=== PATIENT | male | born 1950 | race Caucasian/White ===

== ENCOUNTER 2019-07-21 09:50 | Inpatient (IN) | payer MEDICARE ==
[~2019-07-21] VITALS: Ht 177.8 cm; Wt 122.7 kg
[~2019-07-21 09:50] MED LIST: APIX5TAB3 PO; ASPI-611 PO; CHLO25CA10 PO; CINN500C2 PO; DILT240C90 PO; DIPH-423 PO; MULT1TAB74 PO; [UNRECOGNIZED DRUG - OTHER] PO
[2019-07-21] MEDS ORDERED: nitroGLYCERIN 0.4mg SUBLingual tab SL ONE (10:00)
[2019-07-21] MEDS ORDERED: nitroGLYCERIN 0.4mg SUBLingual tab SL PRN (10:00)
[2019-07-21 10:12] LABS: BASOPHILS # (AUTO) 0.1 X10'3 (0-0.2); EOSINOPHILS # (AUTO) 0.1 X10'3 (0-0.9); HEMOGLOBIN 16.4 g/dl (14.0-17.9); LYMPHOCYTES # (AUTO) 1.3 X10'3 (1.1-4.8); MONOCYTES # (AUTO) 0.7 X10'3 (0-0.9); PLATELET COUNT 194 X10'3 (140-440)
[2019-07-21 10:13] LABS: BASOPHILS % (AUTO) 0.9 % (0-1); EOSINOPHILS % (AUTO) 0.7 % (0-6); HEMATOCRIT 48.6 % (42.0-52.0); LYMPHOCYTES % (AUTO) 13.7 % (21-51); MEAN CORPUSCULAR HEMOGLOBIN 31.4 PG (27.0-31.0); MEAN CORPUSCULAR HGB CONC 33.8 g/dL (33.0-36.5); MEAN CORPUSCULAR VOLUME 92.9 FL (78-98); MEAN PLATELET VOLUME 10.4 FL (7.4-10.4); MONOCYTES % (AUTO) 7.4 % (2-12); NEUTROPHILS # (AUTO) 7.6 X10'3 (1.8-7.7); NEUTROPHILS % (AUTO) 77.3 % (42-75); RED BLOOD COUNT 5.23 X10'6 (4.70-6.10); RED CELL DISTRIBUTION WIDTH 17.1 % (11.5-14.5); WHITE BLOOD COUNT 9.8 X10'3 (4.5-11.0)
[2019-07-21] MEDS ORDERED: diltiazem 5mg/ml 5ml inj. IV ONE (10:20)
[2019-07-21 10:25] LABS: D-DIMER 0.73 MG/L FEU (0-0.50); PARTIAL THROMBOPLASTIN TIME 30 SECONDS (22-32)
[2019-07-21] MEDS ORDERED: morphine 4 MG/ML inj SYRINge IV ONE (10:25)
[2019-07-21] MEDS ORDERED: ondansetron/PF 4mg/2ml inj IV ONE (10:25)
[2019-07-21 10:27] LABS: ALANINE AMINOTRANSFERASE 59 U/L (12-78); ALBUMIN 3.6 G/DL (3.4-5.0); ALBUMIN/GLOBULIN RATIO 0.8 (1.1-1.5); ALKALINE PHOSPHATASE 87 IU/L (46-116); ANION GAP 18 (8-16); ASPARTATE AMINO TRANSFERASE 58 U/L (10-37); BILIRUBIN,TOTAL 0.8 MG/DL (0.1-1.0); BLOOD UREA NITROGEN 13 MG/DL (7-18); BUN/CREATININE RATIO 8.3 (5.4-32.0); CALCIUM 9.6 MG/DL (8.5-10.1); CHLORIDE 100 MMOL/L (99-107); CREATININE 1.57 MG/DL (0.60-1.10); GLUCOSE 172 MG/DL (70-104); POTASSIUM 3.4 MMOL/L (3.5-5.1); SODIUM 140 MMOL/L (135-145); TOTAL CARBON DIOXIDE 22.2 MMOL/L (24-32); TOTAL PROTEIN 8.4 G/DL (6.4-8.2); eGFR 44 ML/MIN
[2019-07-21 10:34] LABS: ANISOCYTOSIS 1+; LARGE PLATELETS FEW; MAGNESIUM 1.6 MG/DL (1.5-2.4); PLATELET ESTIMATE NORMAL
--- NOTE | 2019-07-21 11:34 | NUR ---
WAITING HOSPITALIST FOR ADMIT. VSS. STATES THE MS HELPED.
[2019-07-21] MEDS ORDERED: iohexol 350MG/ML 100ml bottle IV ONE (11:52)
--- NOTE | 2019-07-21 12:22 | NUR ---
TO CTA NOW.
--- NOTE | 2019-07-21 12:34 | NUR ---
VASCULAR AT BEDSIDE FOR ORDERED TEST.
--- NOTE | 2019-07-21 12:56 | NUR ---
PT WAS SATTING AT 88% PLACED ON 4l N/C NOW SAT AT 98% WILL ADJUST WHEN NEEDED
[2019-07-21] MEDS ORDERED: APIX5TAB3 PO (13:01)
[2019-07-21] MEDS ORDERED: APIX2.5T PO (13:01)
[2019-07-21] MEDS ORDERED: DILT240C51 PO (13:01)
--- NOTE | 2019-07-21 13:03 | NUR ---
TURNED 02 DOWN TO 2l SAT IS 98%
[2019-07-21] MEDS ORDERED: potassium CL 10mEq/100ml bag 100 ML IV PRN ×2 (13:10)
[2019-07-21] MEDS ORDERED: mag hydrox/Alum hydrox/simeth 30ml oral suspension PO PRN (13:10)
[2019-07-21] MEDS ORDERED: bisacodyl 10mg suppository rectal RC PRN (13:10)
[2019-07-21] MEDS ORDERED: magnesium hydroxide 30ml (MOM) UD suspension PO PRN (13:10)
[2019-07-21] MEDS ORDERED: acetaminophen 650mg rectal suppository RC PRN (13:10)
[2019-07-21] MEDS ORDERED: diphenhydrAMINE 25mg capsule PO PRN (13:10)
[2019-07-21] MEDS ORDERED: acetaminophen 325mg tablet PO PRN ×2 (13:10)
[2019-07-21] MEDS ORDERED: magnesium 2GM in 50ml NS 50 ML IV PRN (13:10)
[2019-07-21] MEDS ORDERED: potassium Cl 20 mEq SR tablet PO PRN (13:10)
[2019-07-21] MEDS ORDERED: magnesium Cl slow-release 64mg tablet PO PRN (13:10)
[2019-07-21] MEDS ORDERED: HYDROcodone/acetaminophen 5mg/325mg tablet PO PRN (13:10)
[2019-07-21] MEDS ORDERED: morphine 2 MG/ML inj. syringe IV PRN (13:10)
[2019-07-21] MEDS ORDERED: ondansetron/PF 4mg/2ml inj IV PRN (13:10)
[2019-07-21] MEDS ORDERED: methylPREDNISolone sod succ 125mg/2ml vial IV ONE (13:10)
[2019-07-21] MEDS ORDERED: magnesium 4gm in 100ml NS 100 ML IV PRN (13:10)
[2019-07-21 13:36] LABS: HEMOGLOBIN A1C 5.6 % (4.5-6.2)
[2019-07-21] MEDS: K and/or MAG REPLACEMENT MC SCH (13:42)
[2019-07-21] MEDS: normal saline 1000ml 1,000 ML IV SCH (13:46)
[2019-07-21] MEDS: levoFLOXACIN-Levaquin 750MG/D5 150 ML IV SCH (13:46)
[2019-07-21] MEDS: potassium Cl 20 mEq SR tablet PO PRN ×2 (13:46→19:25)
--- NOTE | 2019-07-21 14:00 | NUR ---
Patient in room PCU 3028. I have received report from Nancy and had the opportunity to ask questions and assume patient care.
--- NOTE | 2019-07-21 14:10 | NUR ---
Patient was oriented to new environment, tele applied and vital signs obtains. Assessment completed. Patient is resting comfortably with at bedside.
[2019-07-21] MEDS: ipratropium/albuterol 3ml nebule NEB SCH ×2 (14:29→20:55)
[2019-07-21] MEDS: morphine 2 MG/ML inj. syringe IV PRN ×2 (14:46→21:33)
[2019-07-21] MEDS: methylPREDNISolone sod succ 125mg/2ml vial IV SCH (15:23)
[2019-07-21 15:42] VITALS: BP 150/87
--- NOTE | 2019-07-21 16:36 | NUR ---
Page sent [id number] Mahamed Laguna, Patient has JESUS and wears CPAP at home. Can patient wear his home CPAP will he is here? Lore TERRY, PCU 2639
[2019-07-21] MEDS ORDERED: thiamine inj. 100 MG in normal saline 100ml IV soln 100 ML IV ONE (17:10)
[2019-07-21] MEDS ORDERED: haloperidol 5mg tablet PO PRN (17:10)
[2019-07-21] MEDS ORDERED: haloperidol lactate 5mg/ml inj IM PRN (17:10)
[2019-07-21 18:00] VITALS: BP 143/78
[2019-07-21] MEDS ORDERED: FLU VACC QS 2019-20 (6 MOS UP) 60 MCG/0.5 ML VIAL IMVAC ONE (18:05)
--- NOTE | 2019-07-21 18:30 | NUR ---
Patient in room U 3028B. I have received report from HARRISON Torrez and had the opportunity to ask questions and assume patient care. Patient is alert and oriented X4, denies n/v, dizziness, and rated pain 8/10. Will bring patient's pain medication. Patient's is in room and gave her an update in patient's lab.
--- NOTE | 2019-07-21 18:32 | NUR ---
Patient in room PCU 3028. I have received report from Praveen and had the opportunity to ask questions and assume patient care.
[2019-07-21] MEDS: HYDROcodone/acetaminophen 10/325mg tab PO PRN (18:37)
[2019-07-21] MEDS ORDERED: apixaban 5mg tablet PO SCH ×2 (20:00)
[2019-07-21] MEDS ORDERED: temazepam 15mg capsule PO PRN (21:00)
[2019-07-21] MEDS ORDERED: [UNRECOGNIZED DRUG - REMARK] PO SCH (21:00)
[2019-07-21 21:45] LABS: CLARITY,URINE CLEAR (Clear); GLUCOSE, URINE NEGATIVE (Neg); KETONES,URINE 15 mg/dl (Neg); LEUKOCYTE ESTERASE ,URINE NEGATIVE (Neg); NITRITES, URINE NEGATIVE (Neg); OCCULT BLOOD,URINE LARGE (Neg); PH,URINE 5.5 (4.8-8.0); PROTEIN,URINE 30 mg/dl (Neg)
[2019-07-21 21:50] LABS: COLOR,URINE DARK YELLOW (Yellow); UA COLLECTION TYPE CLN CATCH MIDSTREAM
[2019-07-21 21:55] LABS: BACTERIA,URINE NONE SEEN /HPF (Neg); MUCUS STRANDS NONE SEEN /LPF (Neg); RBC,URINE 0-2 /HPF (0-2); SQUAMOUS EPITHELIAL CELL,UR NONE SEEN /LPF (FEW); WBC,URINE NONE SEEN /HPF (0-4)
[2019-07-21 21:56] LABS: URIC ACID CRYSTALS 2+ /HPF (NEGATIVE)
[2019-07-21 22:00] VITALS: BP 153/69
[2019-07-21] MEDS ORDERED: heparin 25,000 UNIT/250ml bag 250 ML IV SCH (23:19)
[2019-07-22] MEDS: methylPREDNISolone sod succ 125mg/2ml vial IV SCH ×4 (00:34→23:54)
[2019-07-22 02:00] VITALS: BP 142/50
[2019-07-22] MEDS ORDERED: heparin 10,000 units/1 ML INJ IV PRN (02:00)
[2019-07-22] MEDS ORDERED: heparin 10,000 units/1 ML INJ IV ONE (02:00)
[2019-07-22] MEDS: heparin 25,000 UNIT/250ml bag 250 ML IV SCH ×2 (02:06→16:02)
[2019-07-22] MEDS: morphine 2 MG/ML inj. syringe IV PRN ×3 (02:36→18:59)
[2019-07-22] MEDS: ipratropium/albuterol 3ml nebule NEB SCH ×4 (03:00→20:36)
[2019-07-22] MEDS: normal saline 1000ml 1,000 ML IV SCH ×2 (04:03→17:42)
[2019-07-22 04:57] LABS: LYMPHOCYTES # (AUTO) 0.3 X10'3 (1.1-4.8); MEAN CORPUSCULAR HEMOGLOBIN 31.4 PG (27.0-31.0); MEAN CORPUSCULAR HGB CONC 33.3 g/dL (33.0-36.5); MONOCYTES # (AUTO) 0.1 X10'3 (0-0.9); NEUTROPHILS # (AUTO) 6.4 X10'3 (1.8-7.7); PLATELET COUNT 137 X10'3 (140-440); RED CELL DISTRIBUTION WIDTH 16.9 % (11.5-14.5); WHITE BLOOD COUNT 6.8 X10'3 (4.5-11.0)
[2019-07-22 04:59] LABS: BASOPHILS % (AUTO) 0.5 % (0-1); EOSINOPHILS % (AUTO) 0.1 % (0-6); HEMATOCRIT 44.9 % (42.0-52.0); MEAN CORPUSCULAR VOLUME 94.3 FL (78-98); MEAN PLATELET VOLUME 10.9 FL (7.4-10.4); MONOCYTES % (AUTO) 1.2 % (2-12); NEUTROPHILS % (AUTO) 94.2 % (42-75); RED BLOOD COUNT 4.77 X10'6 (4.70-6.10)
[2019-07-22 05:13] LABS: ALANINE AMINOTRANSFERASE 81 U/L (12-78); ALBUMIN/GLOBULIN RATIO 0.7 (1.1-1.5); ALKALINE PHOSPHATASE 88 IU/L (46-116); ANION GAP 14 (8-16); ASPARTATE AMINO TRANSFERASE 76 U/L (10-37); BILIRUBIN,TOTAL 0.6 MG/DL (0.1-1.0); BLOOD UREA NITROGEN 15 MG/DL (7-18); BUN/CREATININE RATIO 14.3 (5.4-32.0); CALCIUM 9.1 MG/DL (8.5-10.1); CHLORIDE 104 MMOL/L (99-107); CHOL/HDL RATIO 1.8 (0.00-4.99); CHOLESTEROL 165 MG/DL (0-200); CREATININE 1.05 MG/DL (0.60-1.10); GLUCOSE 204 MG/DL (70-104); HDL CHOLESTEROL 92 MG/DL (35-60); LDL CHOLESTEROL 62 MG/DL (50-100); LIPASE 131 U/L (73-393); MAGNESIUM 1.7 MG/DL (1.5-2.4); PHOSPHORUS 2.8 MG/DL (2.3-4.5); POTASSIUM 4.6 MMOL/L (3.5-5.1); SODIUM 141 MMOL/L (135-145); TOTAL CARBON DIOXIDE 23.3 MMOL/L (24-32); TOTAL PROTEIN 7.6 G/DL (6.4-8.2); TRIGLYCERIDES 36 MG/DL (20-135); eGFR 70 ML/MIN
[2019-07-22] MEDS: potassium Cl 20 mEq SR tablet PO PRN (05:16)
[2019-07-22] MEDS: LORazepam 2 mg/ml vial IV PRN ×2 (05:49→07:55)
[2019-07-22 06:01] LABS: GIANT PLATELET FEW; LARGE PLATELETS FEW; PLATELET ESTIMATE DECREASED
--- NOTE | 2019-07-22 06:21 | NUR ---
Problems reprioritized. Patient report given, questions answered & plan of care reviewed with HARRISON Torrez. Administered Ativan at 05:46 and infusing Heparin, for DVT, at 2,000units/hr and NS at 70 ml/hr PTT was ordered for 0800 today. Pt stable at shift change
[2019-07-22 07:00] VITALS: BP 115/82
--- NOTE | 2019-07-22 07:05 | NUR ---
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 Upon inspection, earplug is stuck deep within ear canal. Advised pt to not attempt further retrieval to prevent pushing it further in his ear. Hemostats obtained and earplug removed without complication. Pt denies and discomfort of his ear.
[2019-07-22] MEDS: levoFLOXACIN-Levaquin 750MG/D5 150 ML IV SCH (07:53)
[2019-07-22] MEDS: folic acid 1mg tablet PO SCH (07:54)
[2019-07-22] MEDS: diltiazem CD 120mg capsule (once-daily) PO SCH (07:55)
[2019-07-22] MEDS: K and/or MAG REPLACEMENT MC SCH (08:00)
[2019-07-22] MEDS: thiamine 100mg tablet PO SCH (08:00)
[2019-07-22] MEDS: multivitamins, therapeutics tablet PO SCH (08:00)
[2019-07-22] MEDS ORDERED: multivitamins, therapeutics tablet PO SCH (08:00)
[2019-07-22 11:00] VITALS: BP 128/84
[2019-07-22 15:00] VITALS: BP 143/83
--- NOTE | 2019-07-22 16:15 | NUR ---
Patient refused SVN tx @ this time. No Shortness of breath noted. pt states breathing feels fine and tx makes jittery 96% 79hr 2lpm no home tx or O2 Addendum: 07/22/19 at 1619 by Gia Verma RT Amended: Links added.
[2019-07-22 18:00] VITALS: BP 146/90
--- NOTE | 2019-07-22 18:00 | NUR ---
Patient in room PCU 3028B. I have received report from HARRISON Torrez and had the opportunity to ask questions and assume patient care. Patient Heparin is running at 1,900 (therapeutic level). Next PTT will be at 2200. Patient denies dizziness, n/v, and pain on left upper chest still on; however, not as bad as last night. Pain rated 7/10.
--- NOTE | 2019-07-22 18:11 | NUR ---
Problems reprioritized. Patient report given, questions answered & plan of care reviewed with Praveen.
[2019-07-22] MEDS: lactobacillus rhamnosus 10,000 MMU CELLS/CAPSULE PO SCH (19:07)
[2019-07-22 22:00] VITALS: BP 147/105
--- NOTE | 2019-07-22 22:15 | NUR ---
PTT at 22:12 is 57 (therapeutic). Heparin continuos running at 1,900 ml/hr. Ordered next PTT 0412
[2019-07-22] MEDS: HYDROcodone/acetaminophen 10/325mg tab PO PRN (22:34)
[2019-07-23] VITALS (10 sets, daily range): BP systolic 129–179; BP diastolic 74–111
[2019-07-23] MEDS: heparin 25,000 UNIT/250ml bag 250 ML IV SCH ×3 (04:28→16:41)
[2019-07-23] MEDS: ipratropium/albuterol 3ml nebule NEB SCH ×4 (04:40→20:32)
[2019-07-23 04:53] LABS: BASOPHILS # (AUTO) 0.1 X10'3 (0-0.2); BASOPHILS % (AUTO) 1.1 % (0-1); EOSINOPHILS % (AUTO) 0 % (0-6); HEMATOCRIT 42.7 % (42.0-52.0); HEMOGLOBIN 14.2 g/dl (14.0-17.9); LYMPHOCYTES # (AUTO) 0.2 X10'3 (1.1-4.8); LYMPHOCYTES % (AUTO) 1.9 % (21-51); MEAN CORPUSCULAR HEMOGLOBIN 31.5 PG (27.0-31.0); MEAN CORPUSCULAR HGB CONC 33.3 g/dL (33.0-36.5); MEAN CORPUSCULAR VOLUME 94.5 FL (78-98); MEAN PLATELET VOLUME 11.5 FL (7.4-10.4); MONOCYTES # (AUTO) 0.3 X10'3 (0-0.9); MONOCYTES % (AUTO) 2.8 % (2-12); NEUTROPHILS # (AUTO) 10.1 X10'3 (1.8-7.7); NEUTROPHILS % (AUTO) 94.2 % (42-75); PLATELET COUNT 143 X10'3 (140-440); RED BLOOD COUNT 4.52 X10'6 (4.70-6.10); RED CELL DISTRIBUTION WIDTH 17.1 % (11.5-14.5); WHITE BLOOD COUNT 10.7 X10'3 (4.5-11.0)
[2019-07-23 05:20] LABS: ALANINE AMINOTRANSFERASE 70 U/L (12-78); ALBUMIN 3.1 G/DL (3.4-5.0); ALBUMIN/GLOBULIN RATIO 0.7 (1.1-1.5); ALKALINE PHOSPHATASE 78 IU/L (46-116); ANION GAP 9 (8-16); ASPARTATE AMINO TRANSFERASE 43 U/L (10-37); BILIRUBIN,TOTAL 0.5 MG/DL (0.1-1.0); BLOOD UREA NITROGEN 21 MG/DL (7-18); CHLORIDE 105 MMOL/L (99-107); CREATININE 1.05 MG/DL (0.60-1.10); GLUCOSE 193 MG/DL (70-104); LIPASE 103 U/L (73-393); MAGNESIUM 1.8 MG/DL (1.5-2.4); PHOSPHORUS 2.9 MG/DL (2.3-4.5); POTASSIUM 4.3 MMOL/L (3.5-5.1); SODIUM 140 MMOL/L (135-145); TOTAL CARBON DIOXIDE 25.9 MMOL/L (24-32); TOTAL PROTEIN 7.3 G/DL (6.4-8.2); eGFR 70 ML/MIN
--- NOTE | 2019-07-23 06:10 | NUR ---
Problems reprioritized. Patient report given, questions answered & plan of care reviewed with HARRISON Jaime. Patient stable at shift change. Continuos heparin at 1900 ml/hr. Next PTT was ordered for 09:31
--- NOTE | 2019-07-23 06:14 | NUR ---
Patient in room PCU 3028. I have received report from HARRISON Morton and had the opportunity to ask questions and assume patient care.
[2019-07-23 06:19] LABS: LARGE PLATELETS FEW; PLATELET ESTIMATE NORMAL
[2019-07-23] MEDS: K and/or MAG REPLACEMENT MC SCH (07:43)
[2019-07-23] MEDS: lactobacillus rhamnosus 10,000 MMU CELLS/CAPSULE PO SCH ×2 (07:51→19:43)
[2019-07-23] MEDS: diltiazem CD 120mg capsule (once-daily) PO SCH (07:51)
[2019-07-23] MEDS: folic acid 1mg tablet PO SCH (07:51)
[2019-07-23] MEDS: thiamine 100mg tablet PO SCH (07:52)
[2019-07-23] MEDS: multivitamins, therapeutics tablet PO SCH (07:52)
[2019-07-23] MEDS: methylPREDNISolone sod succ 125mg/2ml vial IV SCH ×3 (07:52→19:43)
[2019-07-23] MEDS: normal saline 1000ml 1,000 ML IV SCH (08:00)
[2019-07-23] MEDS: LORazepam 2 mg/ml vial IV PRN ×2 (08:18→15:53)
[2019-07-23] MEDS: HYDROcodone/acetaminophen 10/325mg tab PO PRN ×2 (08:18→21:44)
--- NOTE | 2019-07-23 10:29 | NUR ---
PTT therapeutic no rate change to heparin gtt
[2019-07-23] MEDS: levoFLOXACIN 750MG TABLET PO SCH (11:50)
--- NOTE | 2019-07-23 15:30 | NUR ---
Patient refused SVN tx @ this time. No Shortness of breath noted. pt states breathing feels fine and tx makes jittery 93 nad Addendum: 07/23/19 at 1640 by Gia Verma RT 0800 tx
[2019-07-23] MEDS ORDERED: LORazepam 1 MG tablet PO PRN (17:10)
--- NOTE | 2019-07-23 18:12 | NUR ---
PAGER ID: [phone] MESSAGE: [id number] Mahamed Luz Elena heart rate in the 150's and above for the last 15 minutes. HARRISON Jaime Ext [phone]
--- NOTE | 2019-07-23 18:15 | NUR ---
PAGER ID: [phone] MESSAGE: [id number] Mahamed Luz Elena: Heart rate in the 150's and above last few minutes. HARRISON Jaime Ext [phone]
--- NOTE | 2019-07-23 18:31 | NUR ---
Problems reprioritized. Patient report given, questions answered & plan of care reviewed with HARRISON Morton.
--- NOTE | 2019-07-23 18:47 | NUR ---
PAGER ID: [phone] MESSAGE: [phone] Mahamed Laguna: Heart rate in staying the 120's jumping from sinus to afib do you want us to give anything to help control his rate? HARRISON Jaime Ext [phone]
--- NOTE | 2019-07-23 19:04 | NUR ---
Praveen TERRY notified I paged Dr Johnson twice about heart rate with no reply, notified her to call the night hospitalist if heart rate continues.
--- NOTE | 2019-07-23 19:05 | NUR ---
Patient in room PCU 3028B I have received report from HARRISON Jaime and had the opportunity to ask questions and assume patient care. Heparin to be d/c at 20.00 and administered Eliquis two hours after stopping heparin drip. 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 Patient is asymptomatic and denies CP, n/v, dizziness, and rated pain 5/10. Will call Dr. Cruz, who is liquor commissioner [facility], if pt becomes symptomatic or HR increases.
[2019-07-23] MEDS: apixaban 5mg tablet PO SCH (21:43)
[2019-07-24] MEDS: LORazepam 2 mg/ml vial IV PRN ×2 (00:14→08:06)
[2019-07-24] MEDS: normal saline 1000ml 1,000 ML IV SCH (00:15)
[2019-07-24 02:00] VITALS: BP 147/88
[2019-07-24] MEDS: ipratropium/albuterol 3ml nebule NEB SCH ×2 (03:00→09:00)
[2019-07-24 06:00] VITALS: BP 163/100
[2019-07-24 06:05] LABS: BASOPHILS % (AUTO) 0.3 % (0-1); EOSINOPHILS % (AUTO) 0 % (0-6); HEMATOCRIT 42.7 % (42.0-52.0); HEMOGLOBIN 14.3 g/dl (14.0-17.9); LYMPHOCYTES # (AUTO) 0.2 X10'3 (1.1-4.8); LYMPHOCYTES % (AUTO) 2.9 % (21-51); MEAN CORPUSCULAR HEMOGLOBIN 31.5 PG (27.0-31.0); MEAN CORPUSCULAR HGB CONC 33.5 g/dL (33.0-36.5); MEAN CORPUSCULAR VOLUME 93.8 FL (78-98); MEAN PLATELET VOLUME 10.8 FL (7.4-10.4); MONOCYTES # (AUTO) 0.4 X10'3 (0-0.9); MONOCYTES % (AUTO) 4.6 % (2-12); NEUTROPHILS # (AUTO) 7.9 X10'3 (1.8-7.7); NEUTROPHILS % (AUTO) 92.2 % (42-75); PLATELET COUNT 136 X10'3 (140-440); RED BLOOD COUNT 4.55 X10'6 (4.70-6.10); RED CELL DISTRIBUTION WIDTH 16.8 % (11.5-14.5); WHITE BLOOD COUNT 8.5 X10'3 (4.5-11.0)
--- NOTE | 2019-07-24 06:10 | NUR ---
Problems reprioritized. Patient report given, questions answered & plan of care reviewed with HARRISON Brown. Pt stable at shift change
[2019-07-24 06:46] LABS: ALANINE AMINOTRANSFERASE 63 U/L (12-78); ALBUMIN/GLOBULIN RATIO 0.8 (1.1-1.5); ALKALINE PHOSPHATASE 69 IU/L (46-116); ANION GAP 11 (8-16); ASPARTATE AMINO TRANSFERASE 44 U/L (10-37); BILIRUBIN,TOTAL 0.5 MG/DL (0.1-1.0); BLOOD UREA NITROGEN 22 MG/DL (7-18); CALCIUM 8.8 MG/DL (8.5-10.1); CHLORIDE 106 MMOL/L (99-107); GLUCOSE 205 MG/DL (70-104); LIPASE 332 U/L (73-393); MAGNESIUM 1.9 MG/DL (1.5-2.4); PHOSPHORUS 3.2 MG/DL (2.3-4.5); POTASSIUM 3.5 MMOL/L (3.5-5.1); SODIUM 142 MMOL/L (135-145); eGFR 74 ML/MIN
--- NOTE | 2019-07-24 06:54 | NUR ---
Patient in room PCU 3028. I have received report from HARRISON Morton and had the opportunity to ask questions and assume patient care. Pt sleeping. In no apparent distress. Will continue to monitor.
[2019-07-24] MEDS: HYDROcodone/acetaminophen 10/325mg tab PO PRN (07:52)
[2019-07-24] MEDS: K and/or MAG REPLACEMENT MC SCH (08:00)
[2019-07-24] MEDS: methylPREDNISolone sod succ 125mg/2ml vial IV SCH (08:48)
[2019-07-24] MEDS: apixaban 5mg tablet PO SCH (08:48)
[2019-07-24] MEDS: lactobacillus rhamnosus 10,000 MMU CELLS/CAPSULE PO SCH (08:48)
[2019-07-24] MEDS: folic acid 1mg tablet PO SCH (08:48)
[2019-07-24] MEDS: diltiazem CD 120mg capsule (once-daily) PO SCH (08:48)
[2019-07-24] MEDS: thiamine 100mg tablet PO SCH (08:48)
[2019-07-24] MEDS: multivitamins, therapeutics tablet PO SCH (08:48)
[2019-07-24] MEDS ORDERED: LACT1CAP26 PO (10:15)
[2019-07-24] MEDS ORDERED: thiamine tablet PO (10:15)
[2019-07-24] MEDS ORDERED: LEVO500T89 PO (10:15)
[2019-07-24] MEDS ORDERED: folic acid tablet PO (10:15)
[2019-07-24] MEDS ORDERED: APIX5TAB3 PO (10:15)
[2019-07-24] MEDS ORDERED: PRED10TA23 PO (10:15)
[2019-07-24] MEDS ORDERED: ALBU8.5H8 INH (10:19)
[2019-07-24] MEDS ORDERED: BUDE10.22 INH (10:19)
[2019-07-24 11:00] VITALS: BP 160/102
--- NOTE | 2019-07-24 11:23 | NUR ---
Sent to Dr Johnson PAGER ID: [phone] MESSAGE: RE: Mahamed Laguna [id number]. Moving to the edge of bed pt BP jumped to 160/108 manually. After getting up with PT, HR jumped to 180-200. -Stephanie [phone]
[2019-07-24] MEDS ORDERED: cloNIDine 0.1 mg tablet PO ONE (11:30)
[2019-07-24] MEDS: levoFLOXACIN 750MG TABLET PO SCH (11:34)
--- NOTE | 2019-07-24 12:28 | NUR ---
Sent to Dr Johnson PAGER ID: [phone] MESSAGE: RE: Mahamed Laguna [id number]. New BPs 186/102, 180/88, 184/92 all done manually. -Stephanie [phone]
[2019-07-24] MEDS ORDERED: CLON0.1T PO (23:02)
[2019-07-25] MEDS ORDERED: LORazepam 1 MG tablet PO PRN (17:10)
[2019-07-28] MEDS ORDERED: apixaban 5mg tablet PO SCH (20:00)
== END 2019-07-24 13:45 | disposition home health service (06) | DRG 205 ==
LOC: ER 09:51 → ED HOLD 13:06 → PCU 3S 14:10
PROVIDERS: ADMIT Family Medicine; ATTEND Family Medicine
PROC: 3E02340 Introduction of Influenza Vaccine into Muscle, Percutaneous Approach (ICD-10-PCS; 2019-07-21)
PROC: 2W3SX1Z Immobilization of Right Foot using Splint (ICD-10-PCS; 2019-07-21)
PROC: 5A09357 Assistance with Respiratory Ventilation, Less than 24 Consecutive Hours, Continuous Positive Airway Pressure (ICD-10-PCS; principal; 2019-07-22)
PROC: 5A09357 Assistance with Respiratory Ventilation, Less than 24 Consecutive Hours, Continuous Positive Airway Pressure (ICD-10-PCS; 2019-07-24)
DX: M94.0 Chondrocostal junction syndrome [Tietze] (principal); N17.0 Acute kidney failure with tubular necrosis; J96.90 Respiratory failure, unspecified, unspecified whether with hypoxia or hypercapnia; J44.0 Chronic obstructive pulmonary disease with (acute) lower respiratory infection; I82.412 Acute embolism and thrombosis of left femoral vein; J44.1 Chronic obstructive pulmonary disease with (acute) exacerbation; S92.911A Unspecified fracture of right toe(s), initial encounter for closed fracture; F41.9 Anxiety disorder, unspecified; R73.03 Prediabetes; F10.10 Alcohol abuse, uncomplicated; G47.33 Obstructive sleep apnea (adult) (pediatric); I10 Essential (primary) hypertension; I25.10 Atherosclerotic heart disease of native coronary artery without angina pectoris; R29.6 Repeated falls; I48.91 Unspecified atrial fibrillation; W18.39XA Other fall on same level, initial encounter; E66.01 Morbid (severe) obesity due to excess calories; E87.6 Hypokalemia; G25.0 Essential tremor; J20.9 Acute bronchitis, unspecified; Z68.37 Body mass index [BMI] 37.0-37.9, adult; Z79.01 Long term (current) use of anticoagulants; Z79.899 Other long term (current) drug therapy; Z86.711 Personal history of pulmonary embolism; Z86.718 Personal history of other venous thrombosis and embolism; Z87.891 Personal history of nicotine dependence; Z23 Encounter for immunization; Y93.89 Activity, other specified; Y92.89 Other specified places as the place of occurrence of the external cause; Y99.8 Other external cause status; Z90.49 Acquired absence of other specified parts of digestive tract; Z71.41 Alcohol abuse counseling and surveillance of alcoholic; Z71.3 Dietary counseling and surveillance
CPT/HCPCS: 36415; 71045; 71275; 73630; 80053; 80061; 81001; 83036; 83690; 83735; 83880; 84100; 84484; 85025; 85379; 85610; 85730; 87070; 87081; 93005; 93306; 93970; 94640; 94760; 96374; 96375; 97110; 97116; 97161; 97530; 99285; G0378; J1644; J1956; J2060; J2270; J2405; J2930; J3411; J3490; J7030; Q2037; Q9967